=== PATIENT | male | born 1990 | race Caucasian/White ===

== ENCOUNTER 2016-04-01 17:38 | Emergency (ER) | payer MEDICAID ==
[2016-04-01] MEDS ORDERED: KETOROLAC 60 MG/2 ML VIAL IM ONE (20:56)
== END 2016-04-01 21:40 | disposition home or self-care (01) ==
LOC: ER 17:38
DX: R07.9 Chest pain, unspecified (principal); F15.20 Other stimulant dependence, uncomplicated; F11.20 Opioid dependence, uncomplicated; F17.210 Nicotine dependence, cigarettes, uncomplicated; Z79.899 Other long term (current) drug therapy; F41.1 Generalized anxiety disorder
CPT/HCPCS: 36415; 71020; 72072; 80053; 82553; 84484; 85025; 93005; 96372